=== PATIENT | male | born 1980 | race Caucasian/White ===

== ENCOUNTER 2016-07-19 15:32 | Emergency (ER) | payer OTHER ==
[2016-07-19 16:11] LABS: BASO % 0.6 % (0.0-1.0); EOS # 0.1 K/mm3 (0.0-0.50); EOS % 2.5 % (0.0-3.0); LARGE UNSTAINED CELL # 0.1 K/mm3 (0.0-0.4); LARGE UNSTAINED CELL % 1.6 % (0.0-4.0); LYMPH # 1.7 K/mm3 (1.5-4.5); LYMPH % 38.7 % (24.0-44.0); MEAN CORPUSCULAR HEMOGLOBIN 29.8 pg (27.0-33.0); MEAN CORPUSCULAR HGB CONC 34.7 g/dl (32.0-36.5); MEAN CORPUSCULAR VOLUME 85.8 fl (80.0-96.0); MONO # 0.3 K/mm3 (0.0-0.8); NEUTROPHILS # 2.1 K/mm3 (1.8-7.7); NEUTROPHILS % 50.6 % (36.0-66.0); PLATELET COUNT, AUTOMATED 208 k/mm3 (150-450); RED CELL DISTRIBUTION WIDTH 12.5 % (11.5-14.5); WHITE BLOOD COUNT 4.2 K/mm3 (4.0-10.0)
--- NOTE | 2016-07-19 16:15 | EDDOCDS ---
Nurse's Notes [facility] Name: Toro Reed Age: 36 yrs Sex: Male : 1980 Arrival Date: 07/19/2016 Time: 15:32 Bed I7 / 29 Private MD: Yeny Cruz DO Diagnosis: Contact with and (suspected) exposure to potentially hazardous body fluids;Puncture wound without foreign body of left index finger without damage to nail Presentation: 07/19 15:37 Presenting complaint: Patient states: left index finger needle stick after drawing a ttb patient in C4 at approx 1530 today. 20G. Cleansed with S&W x2 after injury occurred. No bleeding noted. Adult Sepsis Screening: The patient does not have new or worsening altered mentation. Patient's respiratory rate is less than 22. Systolic blood pressure is greater than 100. Patient has a qSOFA score of 0- Negative Sepsis Screen. Suicide/Homicide risk assessment- the patient denies having any suicidal and/or homicidal ideations and does not present with any other emotional, behavioral or mental health complaints. 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 Transition of care: patient was not received from another setting of care. 15:37 Acuity: NATALY Level 4 ttb 15:37 Method Of Arrival: Walkin/Carried/Asstd ttb Triage Assessment: 15:40 General: Appears in no apparent distress, well nourished, well groomed, Behavior is ttb appropriate for age, cooperative, pleasant. Pain: Denies pain. Pt Declines HIV testing. Neurological: Level of Consciousness is awake, alert. Cardiovascular: Chest pain is denied. Respiratory: No deficits noted. Airway is patent. Derm: Skin is normal, small puncture wound noted to left index finger. Injury Description: Puncture sustained to left index finger is superficial, was sustained less than 30 minutes ago. Historical: - Allergies: No known drug Allergies; - Home Meds: 1. levothyroxine 25 mcg Oral cap 1 cap once daily (Last dose: 07/19/2016 12:30) 2. vit D3 5000 daily (Last dose: 07/19/2016 12:30) - PMHx: Hypothyroidism; - PSHx: Carpal Tunnel Repair- Right; - Social history: Smoking status: Patient states was never smoker of tobacco. No barriers to communication noted, The patient speaks fluent Ethiopian, Speaks appropriately for age. - Family history: Not pertinent. - : The pt / caregiver states he / she is not on anticoagulants. Home medication list is obtained from the patient. - Exposure Risk Screening:: None identified. Screenin:35 No information. lr2 16:14 Screening information is obtained from the patient. Fall risk: No risks identified. dy Assistance ADL's: requires no assistance with activities of daily living. Abuse/DV Screen: The patient / caregiver reports he/she is: not in a situation that causes fear, pain or injury. Nutritional screening: No deficits noted. Advance Directives: There is no active DNR order. home support is adequate. Assessment: 16:01 General: Appears in no apparent distress, Behavior is appropriate for age, cooperative. rs3 Pain: Denies pain. Neurological: Level of Consciousness is awake, alert, Oriented to person, place, time. Respiratory: Airway is patent Respiratory effort is even, unlabored. Derm: Skin is pink, warm & dry. Vital Signs: 15:33 BP 120 / 70; Pulse 81; Resp 16; Temp 96.7(T); Pulse Ox 100% on R/A; Weight 78.47 kg lr2 (R); Height 5 ft. 7 in. (170.18 cm) (R); Pain 0/10; 15:33 Body Mass Index 27.10 (78.47 kg, 170.18 cm) lr2 Vitals: 15:33 Log In Time: July 19, 2016 at 15:32. lr2 ED Course: 15:33 Patient visited by Aniyah Cortes. lr2 15:33 Patient moved to Waiting lr2 15:34 Yeny Cruz is Private Physician. lr2 15:35 Patient moved to Pre RCE lr2 15:38 Triage Initiated ttb 15:42 Patient moved to I7 / ttb 15:47 [facility]. cc10 15:47 Nilson Child MD is Attending Physician. cc10 15:47 Patient visited by Jose Chaparro PA-C. cc10 15:47 Patient visited by Jose Chaparro PA-C. cc10 16:01 Hepatitis C Antibody Sent. rs3 16:01 Hepatitis B Surface Antigen Sent. rs3 16:01 Hepatitis B Surface Antibody Sent. rs3 16:01 HIV EXPOSED(ONLY WITH PEP SET) Sent. rs3 16:01 Complete Comphrensive Metabolic Sent. rs3 16:01 CBC with Diff Sent. rs3 16:08 Employee Health Office, . is Referral Physician. cc10 16:14 The patient / caregiver is instructed regarding the plan of care and ED course. Patient dy has correct armband on for positive identification. 16:14 No IV's were initiated during this patient's visit. No procedures done that require dy assistance. Order Results: Lab Order: CBC with Diff; SPEC'M 07/19/16 15:55 Test: WHITE BLOOD COUNT; Value: 4.2; Range: 4.0-10.0; Units: K/mm3; Status: F Test: RED BLOOD COUNT; Value: 4.81; Range: 4.30-6.10; Units: M/mm3; Status: F Test: HEMOGLOBIN; Value: 14.3; Range: 14.0-18.0; Units: g/dl; Status: F Test: HEMATOCRIT; Value: 41.3; Range: 42.0-52.0; Abnormal: Below low normal; Units: %; Status: F Test: MEAN CORPUSCULAR VOLUME; Value: 85.8; Range: 80.0-96.0; Units: fl; Status: F Test: MEAN CORPUSCULAR HEMOGLOBIN; Value: 29.8; Range: 27.0-33.0; Units: pg; Status: F Test: MEAN CORPUSCULAR HGB CONC; Value: 34.7; Range: 32.0-36.5; Units: g/dl; Status: F Test: RED CELL DISTRIBUTION WIDTH; Value: 12.5; Range: 11.5-14.5; Units: %; Status: F Test: PLATELET COUNT, AUTOMATED; Value: 208; Range: 150-450; Units: k/mm3; Status: F Test: NEUTROPHILS %; Value: 50.6; Range: 36.0-66.0; Units: %; Status: F Test: LYMPH %; Value: 38.7; Range: 24.0-44.0; Units: %; Status: F Test: MONO %; Value: 6.0; Range: 0.0-5.0; Abnormal: Above high normal; Units: %; Status: F Test: EOS %; Value: 2.5; Range: 0.0-3.0; Units: %; Status: F Test: BASO %; Value: 0.6; Range: 0.0-1.0; Units: %; Status: F Test: LARGE UNSTAINED CELL %; Value: 1.6; Range: 0.0-4.0; Units: %; Status: F Test: NEUTROPHILS #; Value: 2.1; Range: 1.8-7.7; Units: K/mm3; Status: F Test: LYMPH #; Value: 1.7; Range: 1.5-4.5; Units: K/mm3; Status: F Test: MONO #; Value: 0.3; Range: 0.0-0.8; Units: K/mm3; Status: F Test: EOS #; Value: 0.1; Range: 0.0-0.50; Units: K/mm3; Status: F Test: BASO #; Value: 0.0; Range: 0.0-0.2; Units: K/mm3; Status: F Test: LARGE UNSTAINED CELL #; Value: 0.1; Range: 0.0-0.4; Units: K/mm3; Status: F Outcome: 16:08 Discharge ordered by Provider. cc10 16:14 Discharge Assessment: patient administered narcotics - no. The following High Risk dy Discharge criteria are identified: None. Discharged to home ambulatory. Condition: good. Discharge instructions given to patient, Instructed on discharge instructions, follow up and referral plans. Demonstrated understanding of instructions, Pt was receptive of discharge instructions/ teaching. No special radiology studies were completed. Property sent home with patient. 16:15 Patient left the ED. dy Signatures: Surya Sue RN Vida Farooq RN RN rs3 Kerry Perales RN RN Jose García PA-C PAAbhay cc10 Aniyah Cortes2 MTDD
--- NOTE | 2016-07-19 16:15 | EDDOCDS ---
Physician Documentation [facility] Name: Toro Reed Age: 36 yrs Sex: Male : 1980 Arrival Date: 07/19/2016 Time: 15:32 Bed I7 / 29 Private MD: Yeny Cruz DO Disposition: 07/19/16 16:08 Discharged to Home/Self Care. Impression: Contact with and (suspected) exposure to potentially hazardous body fluids, Puncture wound without foreign body of left index finger without damage to nail. - Condition is Stable. - Discharge Instructions: Body Fluid Exposure Information. - Medication Reconciliation form. - Follow up: Employee Health Office, .; When: Call to arrange an appointment; Reason: Recheck today's complaints, Continuance of care. - Problem is new. - Symptoms are unchanged. Historical: - Allergies: No known drug Allergies; - Home Meds: 1. levothyroxine 25 mcg Oral cap 1 cap once daily (Last dose: 07/19/2016 12:30) 2. vit D3 5000 daily (Last dose: 07/19/2016 12:30) - PMHx: Hypothyroidism; - PSHx: Carpal Tunnel Repair- Right; - Social history: Smoking status: Patient states was never smoker of tobacco. No barriers to communication noted, The patient speaks fluent Slovak, Speaks appropriately for age. - Family history: Not pertinent. - : The pt / caregiver states he / she is not on anticoagulants. Home medication list is obtained from the patient. - Exposure Risk Screening:: None identified. Vital Signs: 07/19 15:33 BP 120 / 70; Pulse 81; Resp 16; Temp 96.7(T); Pulse Ox 100% on R/A; Weight 78.47 kg / lr2 173 lbs (R); Height 5 ft. 7 in. (170.18 cm) (R); Pain 0/10; 15:33 Body Mass Index 27.10 (78.47 kg, 170.18 cm) lr2 MDM: 15:53 CBC with Diff Ordered. EDMS 15:53 Complete Comphrensive Metabolic Ordered. EDMS 15:53 HIV EXPOSED(ONLY WITH PEP SET) Ordered. EDMS 15:53 Hepatitis B Surface Antibody Ordered. EDMS 15:53 Hepatitis B Surface Antigen Ordered. EDMS 15:53 Hepatitis C Antibody Ordered. EDMS Signatures: Dispatcher Med[employer] EDMS Surya Sue, RN RN Kerry Simeon RN RN Jose García, LANDON NAVARRETE cc10 MTDD
[2016-07-19 16:26] LABS: ALBUMIN 3.9 GM/DL (3.2-5.2); ALBUMIN/GLOBULIN RATIO 1.34 (1.00-1.93); ALKALINE PHOSPHATASE 73 U/L (45-117); ALT/SGPT 16 U/L (12-78); ANION GAP 7 MEQ/L (8-16); AST/SGOT 13 U/L (15-37); BILIRUBIN,TOTAL 0.3 MG/DL (0.2-1.0); BLOOD UREA NITROGEN 16 MG/DL (7-18); CALCIUM LEVEL 8.5 MG/DL (8.5-10.1); CARBON DIOXIDE LEVEL 28 MEQ/L (21-32); CHLORIDE LEVEL 109 MEQ/L (98-107); CREATININE FOR GFR 0.89 MG/DL (0.70-1.30); GLOMERULAR FILTRATION RATE > 60.0 (>60); GLUCOSE, FASTING 93 MG/DL (70-105); POTASSIUM SERUM 4.1 MEQ/L (3.5-5.1); SODIUM LEVEL 144 MEQ/L (136-145); TOTAL PROTEIN 6.8 GM/DL (6.4-8.2)
[2016-07-19 17:15] LABS: CONTROL LINE INT CTR LINE PRESENT
[2016-07-20 10:52] LABS: HEPATITIS B SURFACE ANTIBODY POSITIVE (POSITIVE)
--- NOTE | 2016-07-21 17:16 | EDDOCDS ---
Nurse's Notes [facility] Name: Toro Reed Age: 36 yrs Sex: Male : 1980 Arrival Date: 07/19/2016 Time: 15:32 Bed I7 / 29 Private MD: Yeny Cruz DO Diagnosis: Contact with and (suspected) exposure to potentially hazardous body fluids;Puncture wound without foreign body of left index finger without damage to nail Presentation: 07/19 15:37 Presenting complaint: Patient states: left index finger needle stick after drawing a ttb patient in C4 at approx 1530 today. 20G. Cleansed with S&W x2 after injury occurred. No bleeding noted. Adult Sepsis Screening: The patient does not have new or worsening altered mentation. Patient's respiratory rate is less than 22. Systolic blood pressure is greater than 100. Patient has a qSOFA score of 0- Negative Sepsis Screen. Suicide/Homicide risk assessment- the patient denies having any suicidal and/or homicidal ideations and does not present with any other emotional, behavioral or mental health complaints. Status: The patient is an active duty service delivery management consultant. Transition of care: patient was not received from another setting of care. 15:37 Acuity: NATALY Level 4 ttb 15:37 Method Of Arrival: Walkin/Carried/Asstd ttb Triage Assessment: 15:40 General: Appears in no apparent distress, well nourished, well groomed, Behavior is ttb appropriate for age, cooperative, pleasant. Pain: Denies pain. Pt Declines HIV testing. Neurological: Level of Consciousness is awake, alert. Cardiovascular: Chest pain is denied. Respiratory: No deficits noted. Airway is patent. Derm: Skin is normal, small puncture wound noted to left index finger. Injury Description: Puncture sustained to left index finger is superficial, was sustained less than 30 minutes ago. Historical: - Allergies: No known drug Allergies; - Home Meds: 1. levothyroxine 25 mcg Oral cap 1 cap once daily (Last dose: 07/19/2016 12:30) 2. vit D3 5000 daily (Last dose: 07/19/2016 12:30) - PMHx: Hypothyroidism; - PSHx: Carpal Tunnel Repair- Right; - Social history: Smoking status: Patient states was never smoker of tobacco. No barriers to communication noted, The patient speaks fluent Japanese, Speaks appropriately for age. - Family history: Not pertinent. - : The pt / caregiver states he / she is not on anticoagulants. Home medication list is obtained from the patient. - Exposure Risk Screening:: None identified. Screenin:35 No information. lr2 16:14 Screening information is obtained from the patient. Fall risk: No risks identified. dy Assistance ADL's: requires no assistance with activities of daily living. Abuse/DV Screen: The patient / caregiver reports he/she is: not in a situation that causes fear, pain or injury. Nutritional screening: No deficits noted. Advance Directives: There is no active DNR order. home support is adequate. Assessment: 16:01 General: Appears in no apparent distress, Behavior is appropriate for age, cooperative. rs3 Pain: Denies pain. Neurological: Level of Consciousness is awake, alert, Oriented to person, place, time. Respiratory: Airway is patent Respiratory effort is even, unlabored. Derm: Skin is pink, warm & dry. Vital Signs: 15:33 BP 120 / 70; Pulse 81; Resp 16; Temp 96.7(T); Pulse Ox 100% on R/A; Weight 78.47 kg lr2 (R); Height 5 ft. 7 in. (170.18 cm) (R); Pain 0/10; 15:33 Body Mass Index 27.10 (78.47 kg, 170.18 cm) lr2 Vitals: 15:33 Log In Time: July 19, 2016 at 15:32. lr2 ED Course: 15:33 Patient visited by Aniyah Cortes. lr2 15:33 Patient moved to Waiting lr2 15:34 Yeny Cruz is Private Physician. lr2 15:35 Patient moved to Pre RCE lr2 15:38 Triage Initiated ttb 15:42 Patient moved to I7 / ttb 15:47 [facility]. cc[facility] 15:47 Nilson Child MD is Attending Physician. cc10 15:47 Patient visited by Jose Chaparro PA-C. cc10 15:47 Patient visited by Jose Chaparro PA-C. cc10 16:01 Hepatitis C Antibody Sent. rs3 16:01 Hepatitis B Surface Antigen Sent. rs3 16:01 Hepatitis B Surface Antibody Sent. rs3 16:01 HIV EXPOSED(ONLY WITH PEP SET) Sent. rs3 16:01 Complete Comphrensive Metabolic Sent. rs3 16:01 CBC with Diff Sent. rs3 16:08 Employee Health Office, . is Referral Physician. cc10 16:14 The patient / caregiver is instructed regarding the plan of care and ED course. Patient dy has correct armband on for positive identification. 16:14 No IV's were initiated during this patient's visit. No procedures done that require dy assistance. 16:24 [facility] Payment Agreement was scanned into [employer] and attached to record. jp5 22:02 Patient name changed from Toro\S\\S\Reed\S\ to Toro\S\M\S\Reed. EDMS 07/20 09:23 T-Sheet-- Draft Copy was scanned into [employer] and attached to record. gb 13:58 Other: PEP was scanned into [employer] and attached to record. gb Order Results: Lab Order: CBC with Diff; SPEC'M 07/19/16 15:55 Test: WHITE BLOOD COUNT; Value: 4.2; Range: 4.0-10.0; Units: K/mm3; Status: F Test: RED BLOOD COUNT; Value: 4.81; Range: 4.30-6.10; Units: M/mm3; Status: F Test: HEMOGLOBIN; Value: 14.3; Range: 14.0-18.0; Units: g/dl; Status: F Test: HEMATOCRIT; Value: 41.3; Range: 42.0-52.0; Abnormal: Below low normal; Units: %; Status: F Test: MEAN CORPUSCULAR VOLUME; Value: 85.8; Range: 80.0-96.0; Units: fl; Status: F Test: MEAN CORPUSCULAR HEMOGLOBIN; Value: 29.8; Range: 27.0-33.0; Units: pg; Status: F Test: MEAN CORPUSCULAR HGB CONC; Value: 34.7; Range: 32.0-36.5; Units: g/dl; Status: F Test: RED CELL DISTRIBUTION WIDTH; Value: 12.5; Range: 11.5-14.5; Units: %; Status: F Test: PLATELET COUNT, AUTOMATED; Value: 208; Range: 150-450; Units: k/mm3; Status: F Test: NEUTROPHILS %; Value: 50.6; Range: 36.0-66.0; Units: %; Status: F Test: LYMPH %; Value: 38.7; Range: 24.0-44.0; Units: %; Status: F Test: MONO %; Value: 6.0; Range: 0.0-5.0; Abnormal: Above high normal; Units: %; Status: F Test: EOS %; Value: 2.5; Range: 0.0-3.0; Units: %; Status: F Test: BASO %; Value: 0.6; Range: 0.0-1.0; Units: %; Status: F Test: LARGE UNSTAINED CELL %; Value: 1.6; Range: 0.0-4.0; Units: %; Status: F Test: NEUTROPHILS #; Value: 2.1; Range: 1.8-7.7; Units: K/mm3; Status: F Test: LYMPH #; Value: 1.7; Range: 1.5-4.5; Units: K/mm3; Status: F Test: MONO #; Value: 0.3; Range: 0.0-0.8; Units: K/mm3; Status: F Test: EOS #; Value: 0.1; Range: 0.0-0.50; Units: K/mm3; Status: F Test: BASO #; Value: 0.0; Range: 0.0-0.2; Units: K/mm3; Status: F Test: LARGE UNSTAINED CELL #; Value: 0.1; Range: 0.0-0.4; Units: K/mm3; Status: F Lab Order: Complete Comphrensive Metabolic; SPEC'M 07/19/16 15:55 Test: GLUCOSE, FASTING; Value: 93; Range: 70-105; Units: MG/DL; Status: F Test: BLOOD UREA NITROGEN; Value: 16; Range: 7-18; Units: MG/DL; Status: F Test: CREATININE FOR GFR; Value: 0.89; Range: 0.70-1.30; Units: MG/DL; Status: F Test: GLOMERULAR FILTRATION RATE; Value: > 60.0; Range: >60; Status: F Test: SODIUM LEVEL; Value: 144; Range: 136-145; Units: MEQ/L; Status: F Test: POTASSIUM SERUM; Value: 4.1; Range: 3.5-5.1; Units: MEQ/L; Status: F Test: CHLORIDE LEVEL; Value: 109; Range: 98-107; Abnormal: Above high normal; Units: MEQ/L; Status: F Test: CARBON DIOXIDE LEVEL; Value: 28; Range: 21-32; Units: MEQ/L; Status: F Test: ANION GAP; Value: 7; Range: 8-16; Abnormal: Below low normal; Units: MEQ/L; Status: F Test: CALCIUM LEVEL; Value: 8.5; Range: 8.5-10.1; Units: MG/DL; Status: F Test: AST/SGOT; Value: 13; Range: 15-37; Abnormal: Below low normal; Units: U/L; Status: F Test: ALT/SGPT; Value: 16; Range: 12-78; Units: U/L; Status: F Test: ALKALINE PHOSPHATASE; Value: 73; Range: 45-117; Units: U/L; Status: F Test: BILIRUBIN,TOTAL; Value: 0.3; Range: 0.2-1.0; Units: MG/DL; Status: F Test: TOTAL PROTEIN; Value: 6.8; Range: 6.4-8.2; Units: GM/DL; Status: F Test: ALBUMIN; Value: 3.9; Range: 3.2-5.2; Units: GM/DL; Status: F Test: ALBUMIN/GLOBULIN RATIO; Value: 1.34; Range: 1.00-1.93; Status: F Test Note: ; Units are mL/min/1.73 m2 Chronic Kidney Disease Staging per NKF: Stage I & II GFR >=60 Normal to Mildly Decreased Stage III GFR 30-59 Moderately Decreased Stage IV GFR 15-29 Severely Decreased Stage V GFR <15 Very Little GFR Left ESRD GFR <15 on SAS ARCHITECT Lab Order: HIV EXPOSED(ONLY WITH PEP SET); SPEC'M 07/19/16 15:55 Test: HIVEXPOSED0; Value: NEGATIVE; Range: NEGATIVE; Status: F Test: HIV EXPOSED PT 1; Value: NEGATIVE; Range: NEGATIVE; Status: F Test Note: ; This test was performed utilizing a immunochromatographic sandwich principle technique. Sensitivity of the assay is 100%. Specificity of the assay is 99.7%. This test was performed utilizing a immunochromatographic sandwich principle technique. Sensitivity of the assay is 100%. Specificity of the assay is 99.7%. Lab Order: Hepatitis B Surface Antibody; SPEC'M 07/19/16 15:55 Test: HEPATITIS B SURFACE ANTIBODY; Value: POSITIVE; Range: POSITIVE; Status: F Lab Order: Hepatitis B Surface Antigen; SPEC'M 07/19/16 15:55 Test: HEPATITIS B SURFACE ANTIGEN; Value: NEGATIVE; Range: NEGATIVE; Status: F Lab Order: HEPATITIS C ANTIBODY; SPEC'M 07/19/16 15:55 Test: HEPATITIS C VIRUS RAHUL INDEX; Value: 0.1; Range: <0.8; Units: INDEX; Status: F Test Note: ; Negative Not infected with HCV, unless recent infection is suspected or other evidence exists to indicate HCV infection. Outcome: 07/19 16:08 Discharge ordered by Provider. cc10 16:14 Discharge Assessment: patient administered narcotics - no. The following High Risk dy Discharge criteria are identified: None. Discharged to home ambulatory. Condition: good. Discharge instructions given to patient, Instructed on discharge instructions, follow up and referral plans. Demonstrated understanding of instructions, Pt was receptive of discharge instructions/ teaching. No special radiology studies were completed. Property sent home with patient. 16:15 Patient left the ED. dy Signatures: Dispatcher [employer] EDMS Rocio Meyer, Primo Reg Surya Jacob RN RN dy Soosairaj, Rosemary, RN RN rs3 Kerry Perales RN RN ttb Coniski, Colin, PA-Teto PA-C cc10 Luis Alberto Preciado jp5 Aniyah Cortes Chart Complete MTDD
--- NOTE | 2016-07-21 17:16 | EDDOCDS ---
Physician Documentation [facility] Name: Toro Reed Age: 36 yrs Sex: Male : 1980 Arrival Date: 07/19/2016 Time: 15:32 Bed I7 / 29 Private MD: Yeny Cruz DO Disposition: 07/19/16 16:08 Discharged to Home/Self Care. Impression: Contact with and (suspected) exposure to potentially hazardous body fluids, Puncture wound without foreign body of left index finger without damage to nail. - Condition is Stable. - Discharge Instructions: Body Fluid Exposure Information. - Medication Reconciliation form. - Follow up: Employee Health Office, .; When: Call to arrange an appointment; Reason: Recheck today's complaints, Continuance of care. - Problem is new. - Symptoms are unchanged. Historical: - Allergies: No known drug Allergies; - Home Meds: 1. levothyroxine 25 mcg Oral cap 1 cap once daily (Last dose: 07/19/2016 12:30) 2. vit D3 5000 daily (Last dose: 07/19/2016 12:30) - PMHx: Hypothyroidism; - PSHx: Carpal Tunnel Repair- Right; - Social history: Smoking status: Patient states was never smoker of tobacco. No barriers to communication noted, The patient speaks fluent Andorran, Speaks appropriately for age. - Family history: Not pertinent. - : The pt / caregiver states he / she is not on anticoagulants. Home medication list is obtained from the patient. - Exposure Risk Screening:: None identified. Vital Signs: 07/19 15:33 BP 120 / 70; Pulse 81; Resp 16; Temp 96.7(T); Pulse Ox 100% on R/A; Weight 78.47 kg / lr2 173 lbs (R); Height 5 ft. 7 in. (170.18 cm) (R); Pain 0/10; 15:33 Body Mass Index 27.10 (78.47 kg, 170.18 cm) lr2 MDM: 15:53 CBC with Diff Ordered. EDMS 15:53 Complete Comphrensive Metabolic Ordered. EDMS 15:53 HIV EXPOSED(ONLY WITH PEP SET) Ordered. EDMS 15:53 Hepatitis B Surface Antibody Ordered. EDMS 15:53 Hepatitis B Surface Antigen Ordered. EDMS 15:53 Hepatitis C Antibody Ordered. EDMS 16:21 HEPATITIS C ANTIBODY Ordered. EDMS 16:24 [place] Payment Agreement was scanned into [employer] and attached to record. jp5 16:24 Financial registration complete. jp5 07/20 09:23 T-Sheet-- Draft Copy was scanned into [employer] and attached to record. gb 13:58 Other: PEP was scanned into [employer] and attached to record. gb Signatures: Dispatcher [employer] EDMS Rocio Meyer, Reg Reg gb Surya Sue, RN RN Kerry Simeon RN RN ttb Jose Chaparro, PA-C PA-C cc10 Luis Alberto Preciado jp5 The chart was reviewed and I authenticate all verbal orders and agree with the evaluation and treatment provided.Attachments: 07/19 16:24 [facility] Payment Agreement jp5 07/20 09:23 T-Sheet-- Draft Copy gb Chart Complete MTDD
--- NOTE | 2016-07-21 17:16 | EDDOCDS ---
Physician Documentation [facility] Name: Toro Reed Age: 36 yrs Sex: Male : 1980 Arrival Date: 07/19/2016 Time: 15:32 Bed I7 / 29 Private MD: Yeny Cruz DO Disposition: 07/19/16 16:08 Discharged to Home/Self Care. Impression: Contact with and (suspected) exposure to potentially hazardous body fluids, Puncture wound without foreign body of left index finger without damage to nail. - Condition is Stable. - Discharge Instructions: Body Fluid Exposure Information. - Medication Reconciliation form. - Follow up: Employee Health Office, .; When: Call to arrange an appointment; Reason: Recheck today's complaints, Continuance of care. - Problem is new. - Symptoms are unchanged. Historical: - Allergies: No known drug Allergies; - Home Meds: 1. levothyroxine 25 mcg Oral cap 1 cap once daily (Last dose: 07/19/2016 12:30) 2. vit D3 5000 daily (Last dose: 07/19/2016 12:30) - PMHx: Hypothyroidism; - PSHx: Carpal Tunnel Repair- Right; - Social history: Smoking status: Patient states was never smoker of tobacco. No barriers to communication noted, The patient speaks fluent Eritrean, Speaks appropriately for age. - Family history: Not pertinent. - : The pt / caregiver states he / she is not on anticoagulants. Home medication list is obtained from the patient. - Exposure Risk Screening:: None identified. Vital Signs: 07/19 15:33 BP 120 / 70; Pulse 81; Resp 16; Temp 96.7(T); Pulse Ox 100% on R/A; Weight 78.47 kg / lr2 173 lbs (R); Height 5 ft. 7 in. (170.18 cm) (R); Pain 0/10; 15:33 Body Mass Index 27.10 (78.47 kg, 170.18 cm) lr2 MDM: 15:53 CBC with Diff Ordered. EDMS 15:53 Complete Comphrensive Metabolic Ordered. EDMS 15:53 HIV EXPOSED(ONLY WITH PEP SET) Ordered. EDMS 15:53 Hepatitis B Surface Antibody Ordered. EDMS 15:53 Hepatitis B Surface Antigen Ordered. EDMS 15:53 Hepatitis C Antibody Ordered. EDMS 16:21 HEPATITIS C ANTIBODY Ordered. EDMS 16:24 [facility] Agreement was scanned into [employer] and attached to record. jp5 16:24 Financial registration complete. jp5 07/20 09:23 T-Sheet-- Draft Copy was scanned into [employer] and attached to record. gb 13:58 Other: PEP was scanned into [employer] and attached to record. gb Signatures: Dispatcher [employer] EDMS Rocio Meyer, Reg Reg gb Surya Sue, RN RN Kerry Simeon RN RN ttb Jose Chaparro, PA-C PA-C cc10 Luis Alberto Preciado jp5 The chart was reviewed and I authenticate all verbal orders and agree with the evaluation and treatment provided.Attachments: 07/19 16:24 REPLACED BY [facility] Payment Agreement jp5 07/20 09:23 T-Sheet-- Draft Copy gb Chart Complete MTDD
== END 2016-07-19 16:15 | disposition home or self-care (01) ==
LOC: MERGE 15:32 → M ED 15:32
DX: Z77.21 Contact with and (suspected) exposure to potentially hazardous body fluids (principal); S61.231A Puncture wound without foreign body of left index finger without damage to nail, initial encounter; W46.0XXA Contact with hypodermic needle, initial encounter; Y92.230 Patient room in hospital as the place of occurrence of the external cause; Y93.89 Activity, other specified; Y99.0 Civilian activity done for income or pay; E03.9 Hypothyroidism, unspecified; Z79.899 Other long term (current) drug therapy

== ENCOUNTER → 2016-12-31 | Outpatient (CLI) | payer OTHER ==
[2016-12-31 09:38] LABS: BASO % 0.6 % (0.0-1.0); EOS # 0.1 K/mm3 (0.0-0.50); EOS % 2.1 % (0.0-3.0); LARGE UNSTAINED CELL # 0.1 K/mm3 (0.0-0.4); LARGE UNSTAINED CELL % 2.9 % (0.0-4.0); LYMPH # 1.7 K/mm3 (1.5-4.5); LYMPH % 40.8 % (24.0-44.0); MEAN CORPUSCULAR HEMOGLOBIN 30.1 pg (27.0-33.0); MEAN CORPUSCULAR HGB CONC 34.1 g/dl (32.0-36.5); MEAN CORPUSCULAR VOLUME 88.3 fl (80.0-96.0); MONO # 0.3 K/mm3 (0.0-0.8); MONO % 6.4 % (0.0-5.0); NEUTROPHILS % 47.2 % (36.0-66.0); PLATELET COUNT, AUTOMATED 185 k/mm3 (150-450); RED CELL DISTRIBUTION WIDTH 12.6 % (11.5-14.5); WHITE BLOOD COUNT 4.2 K/mm3 (4.0-10.0)
[2016-12-31 10:20] LABS: SICKLE CELL SCREEN NEGATIVE (NEGATIVE)
[2016-12-31 10:24] LABS: ALBUMIN 3.9 GM/DL (3.2-5.2); ALBUMIN/GLOBULIN RATIO 1.26 (1.00-1.93); ALKALINE PHOSPHATASE 66 U/L (45-117); ALT/SGPT 32 U/L (12-78); ANION GAP 6 MEQ/L (8-16); AST/SGOT 16 U/L (15-37); BILIRUBIN,TOTAL 0.3 MG/DL (0.2-1.0); BLOOD UREA NITROGEN 9 MG/DL (7-18); CARBON DIOXIDE LEVEL 29 MEQ/L (21-32); CHLORIDE LEVEL 109 MEQ/L (98-107); CHOLESTEROL LEVEL 164 MG/DL (<200); CREATININE FOR GFR 0.84 MG/DL (0.70-1.30); FREE T4 1.09 NG/DL (0.76-1.46); GLOMERULAR FILTRATION RATE > 60.0 (>60); GLUCOSE, FASTING 94 MG/DL (70-105); POTASSIUM SERUM 4.5 MEQ/L (3.5-5.1); SODIUM LEVEL 144 MEQ/L (136-145); TRIGLYCERIDES LEVEL 64 MG/DL (<150)
== END ==
LOC: M LAB 08:35
PROVIDERS: ATTEND Physician Assistant Medical
DX: E03.9 Hypothyroidism, unspecified (principal); Z13.0 Encounter for screening for diseases of the blood and blood-forming organs and certain disorders involving the immune mechanism; Z13.220 Encounter for screening for lipoid disorders; Z23 Encounter for immunization

== ENCOUNTER → 2017-01-27 | Outpatient (CLI) | payer OTHER ==
[2017-01-27 10:44] LABS: FREE T4 1.33 NG/DL (0.76-1.46)
== END ==
LOC: M LAB 09:00
PROVIDERS: ATTEND Family Medicine
DX: E03.9 Hypothyroidism, unspecified (principal)

== ENCOUNTER → 2018-01-11 | Outpatient (CLI) | payer OTHER, BC ==
[2018-01-11 13:04] LABS: BASO % 0.4 % (0.0-1.0); EOS # 0.1 10^3/uL (0.0-0.50); EOS % 1.7 % (0.0-3.0); HEMATOCRIT 45.3 % (42.0-52.0); HEMOGLOBIN 15.4 g/dl (13.5-17.5); IMMATURE GRANULOCYTE % 0.2 % (0-3.0); LYMPH # 1.7 10^3/uL (1.5-4.5); LYMPH % 31.6 % (24.0-44.0); MEAN CORPUSCULAR HEMOGLOBIN 29.3 pg (27.0-33.0); MEAN CORPUSCULAR VOLUME 86.1 fl (80.0-96.0); MONO # 0.5 10^3/uL (0.0-0.8); MONO % 9.6 % (0.0-5.0); NEUTROPHILS % 56.5 % (36.0-66.0); PLATELET COUNT, AUTOMATED 124 10^3/uL (150-450); RED BLOOD COUNT 5.26 10^6/uL (4.30-6.10); RED CELL DISTRIBUTION WIDTH 12.8 % (11.5-14.5); WHITE BLOOD COUNT 5.3 10^3/uL (4.0-10.0)
[2018-01-11 13:33] LABS: ALBUMIN 3.9 GM/DL (3.2-5.2); ALBUMIN/GLOBULIN RATIO 1.18 (1.00-1.93); ALKALINE PHOSPHATASE 71 U/L (45-117); ALT/SGPT 28 U/L (12-78); ANION GAP 7 MEQ/L (8-16); AST/SGOT 13 U/L (7-37); BILIRUBIN,TOTAL 0.5 MG/DL (0.2-1.0); BLOOD UREA NITROGEN 13 MG/DL (7-18); CALCIUM LEVEL 9.1 MG/DL (8.5-10.1); CARBON DIOXIDE LEVEL 28 MEQ/L (21-32); CHLORIDE LEVEL 108 MEQ/L (98-107); CHOLESTEROL LEVEL 167 MG/DL (<200); CHOLESTEROL RISK RATIO 4.282 (<5); CREATININE FOR GFR 0.88 MG/DL (0.70-1.30); GLOMERULAR FILTRATION RATE > 60.0 (>60); GLUCOSE, FASTING 90 MG/DL (70-100); HDL CHOLESTEROL 39 MG/DL (>40); LDL CHOLESTEROL 112.2 MG/DL (<100); NON-HDL-C 128 MG/DL; POTASSIUM SERUM 4.9 MEQ/L (3.5-5.1); SODIUM LEVEL 143 MEQ/L (136-145); THYROID STIMULATING HORMONE 0.682 uIU/ML (0.358-3.740); TOTAL PROTEIN 7.2 GM/DL (6.4-8.2); TRIGLYCERIDES LEVEL 79 MG/DL (<150)
== END ==
LOC: M SMT 08:27
DX: E03.9 Hypothyroidism, unspecified (principal); E55.9 Vitamin D deficiency, unspecified; Z13.29 Encounter for screening for other suspected endocrine disorder; Z13.220 Encounter for screening for lipoid disorders; Z13.0 Encounter for screening for diseases of the blood and blood-forming organs and certain disorders involving the immune mechanism
CPT/HCPCS: 84443

== ENCOUNTER → 2018-02-10 | Outpatient (CLI) | payer BC, OTHER ==
[2018-02-10 19:21] LABS: BASO % 0.6 % (0.0-1.0); EOS # 0.1 10^3/uL (0.0-0.50); HEMATOCRIT 44.9 % (42.0-52.0); HEMOGLOBIN 15.2 g/dl (13.5-17.5); IMMATURE GRANULOCYTE % 0.2 % (0-3.0); LYMPH # 2.3 10^3/uL (1.5-4.5); LYMPH % 36.4 % (24.0-44.0); MEAN CORPUSCULAR HGB CONC 33.9 g/dl (32.0-36.5); MEAN CORPUSCULAR VOLUME 85.7 fl (80.0-96.0); MONO # 0.5 10^3/uL (0.0-0.8); MONO % 7.3 % (0.0-5.0); NEUTROPHILS # 3.4 10^3/uL (1.8-7.7); NEUTROPHILS % 54.5 % (36.0-66.0); PLATELET COUNT, AUTOMATED 148 10^3/uL (150-450); RED BLOOD COUNT 5.24 10^6/uL (4.30-6.10); RED CELL DISTRIBUTION WIDTH 12.4 % (11.5-14.5); WHITE BLOOD COUNT 6.3 10^3/uL (4.0-10.0)
[2018-02-10 19:36] LABS: REASON FOR REVIEW OTHER; SLIDE REVIEW Report; SOURCE PERIPHERAL SMEAR
== END ==
LOC: M SMT 15:01
DX: D69.6 Thrombocytopenia, unspecified (principal)
CPT/HCPCS: 85025

== ENCOUNTER → 2019-02-17 | Outpatient (CLI) | payer BC, OTHER ==
[2019-02-17 15:38] LABS: BASO % 0.6 % (0.0-1.0); EOS # 0.1 10^3/uL (0.0-0.5); EOS % 1.7 % (0.0-3.0); HEMATOCRIT 47.8 % (42.0-52.0); LYMPH % 42.5 % (24.0-44.0); MEAN CORPUSCULAR HEMOGLOBIN 29.5 pg (27.0-33.0); MEAN CORPUSCULAR HGB CONC 33.5 g/dl (32.0-36.5); MEAN CORPUSCULAR VOLUME 88.2 fl (80.0-96.0); MONO # 0.5 10^3/uL (0.0-0.8); MONO % 9.7 % (0.0-5.0); NEUTROPHILS # 2.1 10^3/uL (1.5-8.5); NEUTROPHILS % 45.3 % (36.0-66.0); PLATELET COUNT, AUTOMATED 183 10^3/uL (150-450); RED BLOOD COUNT 5.42 10^6/uL (4.30-6.10); WHITE BLOOD COUNT 4.7 10^3/uL (4.0-10.0)
[2019-02-17 17:01] LABS: ALT/SGPT 59 U/L (12-78); BILIRUBIN,TOTAL 0.4 MG/DL (0.2-1.0); BLOOD UREA NITROGEN 13 MG/DL (7-18); CALCIUM LEVEL 9.2 MG/DL (8.5-10.1); CARBON DIOXIDE LEVEL 28 MEQ/L (21-32); CHLORIDE LEVEL 109 MEQ/L (98-107); CHOLESTEROL LEVEL 168 MG/DL (<200); CHOLESTEROL RISK RATIO 3.733 (<5); CREATININE FOR GFR 1.03 MG/DL (0.70-1.30); FREE T4 1.24 NG/DL (0.76-1.46); GLOMERULAR FILTRATION RATE > 60.0 (>60); GLUCOSE, FASTING 97 MG/DL (70-100); HDL CHOLESTEROL 45 MG/DL (>40); LDL CHOLESTEROL 107 MG/DL (<100); NON-HDL-C 123 MG/DL; POTASSIUM SERUM 4.9 MEQ/L (3.5-5.1); SODIUM LEVEL 143 MEQ/L (136-145); TOTAL 25(OH) VITAMIN D 33.3 NG/ML (30.0-100.0); TOTAL PROTEIN 7.2 GM/DL (6.4-8.2); TRIGLYCERIDES LEVEL 80 MG/DL (<150)
== END ==
LOC: M SMT 08:35
PROVIDERS: ATTEND Family Medicine
DX: Z00.00 Encounter for general adult medical examination without abnormal findings (principal); E55.9 Vitamin D deficiency, unspecified; E03.9 Hypothyroidism, unspecified; Z13.29 Encounter for screening for other suspected endocrine disorder; Z13.0 Encounter for screening for diseases of the blood and blood-forming organs and certain disorders involving the immune mechanism; Z13.220 Encounter for screening for lipoid disorders

== ENCOUNTER → 2019-03-22 | Outpatient (REF) | payer OTHER, BC ==
[2019-03-22 23:51] LABS: CHLAMYDIA DNA AMPLIFICATION NEGATIVE (NEGATIVE); GC DNA AMPLIFICATION NEGATIVE (NEGATIVE)
== END ==
LOC: M LAB REF 17:05
PROVIDERS: ATTEND Family Medicine
DX: N50.812 Left testicular pain (principal)

== ENCOUNTER → 2019-11-09 | Outpatient (CLI) | payer BC, OTHER ==
[2019-11-09 15:36] LABS: BASO % 0.4 % (0.0-1.0); EOS # 0.1 10^3/uL (0.0-0.5); EOS % 0.7 % (0.0-3.0); HEMATOCRIT 43.8 % (42.0-52.0); HEMOGLOBIN 15.1 g/dl (13.5-17.5); LYMPH # 2.3 10^3/uL (1.5-5.0); LYMPH % 33.9 % (24.0-44.0); MEAN CORPUSCULAR HGB CONC 34.5 g/dl (32.0-36.5); MEAN CORPUSCULAR VOLUME 84.1 fl (80.0-96.0); MONO # 0.6 10^3/uL (0.0-0.8); MONO % 8.4 % (0.0-5.0); NEUTROPHILS # 3.8 10^3/uL (1.5-8.5); NEUTROPHILS % 56.5 % (36.0-66.0); PLATELET COUNT, AUTOMATED 250 10^3/uL (150-450); RED BLOOD COUNT 5.21 10^6/uL (4.30-6.10); WHITE BLOOD COUNT 6.7 10^3/uL (4.0-10.0)
[2019-11-09 16:10] LABS: ALBUMIN 4.1 GM/DL (3.2-5.2); ALT/SGPT 118 U/L (12-78); BILIRUBIN,TOTAL 0.5 MG/DL (0.2-1.0); BLOOD UREA NITROGEN 13 MG/DL (7-18); CARBON DIOXIDE LEVEL 28 MEQ/L (21-32); CHLORIDE LEVEL 108 MEQ/L (98-107); CHOLESTEROL LEVEL 201 MG/DL (<200); CHOLESTEROL RISK RATIO 5.025 (<5); CREATININE FOR GFR 1.08 MG/DL (0.70-1.30); FREE T4 1.39 NG/DL (0.76-1.46); GLOMERULAR FILTRATION RATE > 60.0 (>60); GLUCOSE, FASTING 89 MG/DL (70-100); HDL CHOLESTEROL 40 MG/DL (>40); LDL CHOLESTEROL 142 MG/DL (<100); NON-HDL-C 161 MG/DL; POTASSIUM SERUM 4.7 MEQ/L (3.5-5.1); SODIUM LEVEL 142 MEQ/L (136-145); TOTAL PROTEIN 7.5 GM/DL (6.4-8.2); TRIGLYCERIDES LEVEL 97 MG/DL (<150)
[2019-11-10 18:16] LABS: TOTAL 25(OH) VITAMIN D 29.7 NG/ML (30.0-100.0)
== END ==
LOC: M LAB 15:08
PROVIDERS: ATTEND Family Medicine
DX: E03.9 Hypothyroidism, unspecified (principal)

== ENCOUNTER → 2020-11-14 | Outpatient (CLI) | payer OTHER ==
[2020-11-14 08:04] LABS: BASO % 0.6 % (0.0-1.0); EOS # 0.1 10^3/uL (0.0-0.5); EOS % 2.6 % (0.0-3.0); HEMATOCRIT 45.8 % (42.0-52.0); HEMOGLOBIN 15.4 g/dl (13.5-17.5); LYMPH # 2.1 10^3/uL (1.5-5.0); LYMPH % 42.3 % (24.0-44.0); MEAN CORPUSCULAR HEMOGLOBIN 28.7 pg (27.0-33.0); MEAN CORPUSCULAR HGB CONC 33.6 g/dl (32.0-36.5); MEAN CORPUSCULAR VOLUME 85.4 fl (80.0-96.0); MONO # 0.4 10^3/uL (0.0-0.8); MONO % 8.4 % (2.0-8.0); NEUTROPHILS # 2.3 10^3/uL (1.5-8.5); NEUTROPHILS % 45.9 % (36.0-66.0); PLATELET COUNT, AUTOMATED 153 10^3/uL (150-450); RED BLOOD COUNT 5.36 10^6/uL (4.30-6.10)
[2020-11-14 08:28] LABS: ALT/SGPT 48 U/L (12-78); BILIRUBIN,TOTAL 0.5 MG/DL (0.2-1.0); BLOOD UREA NITROGEN 14 MG/DL (7-18); CALCIUM LEVEL 9.3 MG/DL (8.5-10.1); CARBON DIOXIDE LEVEL 29 MEQ/L (21-32); CHLORIDE LEVEL 109 MEQ/L (98-107); CHOLESTEROL LEVEL 180 MG/DL (<200); CHOLESTEROL RISK RATIO 3.673 (<5); CREATININE FOR GFR 0.89 MG/DL (0.70-1.30); FREE T4 1.27 NG/DL (0.76-1.46); GLOMERULAR FILTRATION RATE > 60.0 (>60); GLUCOSE, FASTING 99 MG/DL (70-100); HDL CHOLESTEROL 49 MG/DL (>40); LDL CHOLESTEROL 116 MG/DL (<100); NON-HDL-C 131 MG/DL; POTASSIUM SERUM 4.4 MEQ/L (3.5-5.1); SODIUM LEVEL 142 MEQ/L (136-145); THYROID STIMULATING HORMONE 0.691 uIU/ML (0.358-3.740); TOTAL PROTEIN 7.4 GM/DL (6.4-8.2); TRIGLYCERIDES LEVEL 77 MG/DL (<150)
[2020-11-14 09:53] LABS: TOTAL 25(OH) VITAMIN D 25.9 NG/ML (30.0-100.0)
== END ==
LOC: M LAB 07:13
PROVIDERS: ATTEND Family Medicine
DX: E55.9 Vitamin D deficiency, unspecified (principal)

== ENCOUNTER → 2021-01-13 | Outpatient (CLI) | payer OTHER ==
--- NOTE | 2021-01-14 08:22 | REP ---
INDICATION: LOW BACK PAIN COMPARISON: None. TECHNIQUE: AP, lateral, flexion/extension, bilateral oblique, and coned-down views. FINDINGS: Alignment and lordosis is maintained. The vertebral bodies including transverse process and spinous processes are intact and normal. There is no evidence for acute fracture / compression injury or subluxation. No evidence for spondylolysis or spondylolisthesis. Mild multilevel degenerative changes with endplate sclerosis, subtle marginal spurring and mild facet hypertrophy primarily involving L4-5 through L5-S1. Very minimal disc space narrowing at L5-S1 is also suggested. IMPRESSION: Mild degenerative changes to the lower lumbar spine suggested. <Electronically signed by Luciano Baldwin > 01/14/21 [id number]
== END ==
LOC: M RAD 18:52
PROVIDERS: ATTEND Family Medicine
DX: M51.36 Other intervertebral disc degeneration, lumbar region (principal)

== ENCOUNTER 2021-10-28 08:11 | Emergency (ER) | payer OTHER ==
[2021-10-28 08:19] VITALS: BP 136/88
[2021-10-28 09:11] VITALS: O2SAT 99
== END 2021-10-28 10:26 | disposition home or self-care (01) ==
LOC: EDBD 08:11 → M ED 08:11
DX: S06.0X0A Concussion without loss of consciousness, initial encounter (principal); V48.5XXA Car driver injured in noncollision transport accident in traffic accident, initial encounter

== ENCOUNTER → 2021-11-27 | Outpatient (CLI) | payer BC, OTHER ==
[2021-11-27 09:06] LABS: BASO % 0.6 % (0.0-1.0); EOS # 0.1 10^3/uL (0.0-0.5); EOS % 1.4 % (0.0-3.0); HEMATOCRIT 44.7 % (42.0-52.0); HEMOGLOBIN 15.5 g/dl (13.5-17.5); LYMPH # 1.8 10^3/uL (1.5-5.0); LYMPH % 34.6 % (24.0-44.0); MEAN CORPUSCULAR HEMOGLOBIN 29.4 pg (27.0-33.0); MEAN CORPUSCULAR HGB CONC 34.7 g/dl (32.0-36.5); MEAN CORPUSCULAR VOLUME 84.7 fl (80.0-96.0); MONO # 0.5 10^3/uL (0.0-0.8); MONO % 10.1 % (2.0-8.0); NEUTROPHILS # 2.7 10^3/uL (1.5-8.5); NEUTROPHILS % 53.1 % (36.0-66.0); PLATELET COUNT, AUTOMATED 177 10^3/uL (150-450); RED BLOOD COUNT 5.28 10^6/uL (4.30-6.10); WHITE BLOOD COUNT 5.2 10^3/uL (4.0-10.0)
[2021-11-27 09:39] LABS: ALBUMIN 3.9 GM/DL (3.2-5.2); ALT/SGPT 54 U/L (12-78); BILIRUBIN,TOTAL 0.8 MG/DL (0.2-1.0); BLOOD UREA NITROGEN 12 MG/DL (7-18); CALCIUM LEVEL 9.1 MG/DL (8.5-10.1); CARBON DIOXIDE LEVEL 27 MEQ/L (21-32); CHLORIDE LEVEL 108 MEQ/L (98-107); CHOLESTEROL LEVEL 184 MG/DL (<200); CHOLESTEROL RISK RATIO 4.279 (<5); CREATININE FOR GFR 1.05 MG/DL (0.70-1.30); FREE T4 1.27 NG/DL (0.76-1.46); GLOMERULAR FILTRATION RATE > 60.0 (>60); GLUCOSE, FASTING 84 MG/DL (70-100); HDL CHOLESTEROL 43 MG/DL (>40); LDL CHOLESTEROL 123 MG/DL (<100); NON-HDL-C 141 MG/DL; POTASSIUM SERUM 4.2 MEQ/L (3.5-5.1); SODIUM LEVEL 140 MEQ/L (136-145); TRIGLYCERIDES LEVEL 92 MG/DL (<150)
[2021-11-27 09:55] LABS: TOTAL 25(OH) VITAMIN D 33.4 NG/ML (30.0-100.0)
== END ==
LOC: M LAB 07:51
PROVIDERS: ATTEND Nurse Practitioner Adult Health
DX: Z13.220 Encounter for screening for lipoid disorders (principal); Z13.228 Encounter for screening for other metabolic disorders; E03.9 Hypothyroidism, unspecified

== ENCOUNTER → 2022-06-09 | Outpatient (CLI) | payer BC, OTHER ==
[2022-06-09 15:06] LABS: BASO % 0.4 % (0.0-1.0); EOS # 0.1 10^3/uL (0.0-0.5); EOS % 1.2 % (0.0-3.0); HEMATOCRIT 41.2 % (42.0-52.0); HEMOGLOBIN 14.1 g/dl (13.5-17.5); LYMPH # 2.1 10^3/uL (1.5-5.0); LYMPH % 42.2 % (24.0-44.0); MEAN CORPUSCULAR HGB CONC 34.2 g/dl (32.0-36.5); MEAN CORPUSCULAR VOLUME 84.6 fl (80.0-96.0); MONO # 0.5 10^3/uL (0.0-0.8); MONO % 10.2 % (2.0-8.0); NEUTROPHILS # 2.3 10^3/uL (1.5-8.5); PLATELET COUNT, AUTOMATED 282 10^3/uL (150-450); RED BLOOD COUNT 4.87 10^6/uL (4.30-6.10)
[2022-06-09 15:23] LABS: INR 0.92; PROTHROMBIN TIME 12.6 SECONDS (12.5-14.5)
[2022-06-09 15:24] LABS: PARTIAL THROMBOPLASTIN TIME 28.3 SECONDS (24.8-34.2)
[2022-06-09 15:36] LABS: ALBUMIN 3.9 G/DL (3.2-5.2); ALKALINE PHOSPHATASE 71 U/L (46-116); ALT/SGPT 50 U/L (7.0-40); AST/SGOT 33 U/L (<34); BILIRUBIN,DIRECT 0.2 MG/DL (<0.4); BILIRUBIN,TOTAL 0.6 MG/DL (0.3-1.2); TOTAL PROTEIN 6.6 G/DL (5.7-8.2)
[2022-06-09 15:51] LABS: HEPATITIS B SURFACE ANTIGEN NEGATIVE (NEGATIVE)
[2022-06-09 16:12] LABS: HEPATITIS B CORE ANTIBODY IGM NEGATIVE (NEGATIVE)
== END ==
LOC: M LAB 14:32
PROVIDERS: ATTEND Nurse Practitioner Adult Health
DX: R31.9 Hematuria, unspecified (principal)

== ENCOUNTER → 2022-06-09 | Outpatient (CLI) | payer BC, OTHER ==
[~2022-06-09] MED LIST: ISOVUE-370 76% 100ML VIAL As Ordered ONE
== END ==
LOC: M RAD 15:16
PROVIDERS: ATTEND Nurse Practitioner Adult Health
DX: R31.0 Gross hematuria (principal)

== ENCOUNTER → 2022-06-30 | Outpatient (REF) | payer BC, OTHER ==
[2022-06-30 19:21] LABS: APPEARANCE, URINE MANUAL CLEAR (CLEAR); COLOR, URINE MANUAL LT YELLOW (YELLOW)
[2022-06-30 19:22] LABS: BILIRUBIN, URINE MANUAL NEGATIVE (NEGATIVE); BLOOD URINE MANUAL NEGATIVE (NEGATIVE); GLUCOSE, URINE (UA) MANUAL NEGATIVE (NEGATIVE); KETONE, URINE MANUAL NEGATIVE (NEGATIVE); LEUKOCYTE ESTERASE, URINE MAN NEGATIVE (NEGATIVE); NITRITE, URINE MANUAL NEGATIVE (NEGATIVE); PH,URINE MAN 7.5 UNITS (5.0 - 7.0); PROTEIN, URINE MANUAL NEGATIVE (NEGATIVE); UROBILINOGEN, URINE MANUAL NORMAL (NORMAL)
== END ==
LOC: M SMT 17:07
PROVIDERS: ATTEND Urology
DX: R31.0 Gross hematuria (principal)

== ENCOUNTER 2022-07-26 18:24 | Emergency (ER) | payer BC, OTHER ==
[~2022-07-26] VITALS: Ht 170.2 cm; Wt 93.2 kg
[2022-07-26 18:24] VITALS: BP 152/89
[2022-07-26] MEDS ORDERED: LEVO50TA5 (18:40)
[2022-07-26] MEDS ORDERED: OMEP40CA5 (18:40)
[2022-07-26] MEDS ORDERED: BUPR-365 (18:40)
[2022-07-26 19:24] LABS: BASO % 0.2 % (0.0-1.0); EOS % 0.2 % (0.0-3.0); LYMPH % 8.3 % (24.0-44.0); MEAN CORPUSCULAR HEMOGLOBIN 29.2 pg (27.0-33.0); MEAN CORPUSCULAR HGB CONC 34.1 g/dl (32.0-36.5); MEAN CORPUSCULAR VOLUME 85.6 fl (80.0-96.0); MONO # 0.5 10^3/uL (0.0-0.8); MONO % 3.9 % (2.0-8.0); NEUTROPHILS # 10.6 10^3/uL (1.5-8.5); NEUTROPHILS % 87.1 % (36.0-66.0); PLATELET COUNT, AUTOMATED 226 10^3/uL (150-450); RED BLOOD COUNT 4.79 10^6/uL (4.30-6.10); WHITE BLOOD COUNT 12.2 10^3/uL (4.0-10.0)
[2022-07-26] MEDS ORDERED: KETOROLAC 30 MG/ML 1ML VIAL IV ONE (19:25)
[2022-07-26] MEDS ORDERED: NS 1,000 ML IV ONE (19:25)
[2022-07-26] MEDS ORDERED: ONDANSETRON 4MG 2ML VIAL IV ONE (19:25)
[2022-07-26 20:00] LABS: ALBUMIN 3.9 G/DL (3.2-5.2); ALKALINE PHOSPHATASE 64 U/L (46-116); ALT/SGPT 48 U/L (7.0-40); AST/SGOT 26 U/L (<34); BILIRUBIN,DIRECT 0.1 MG/DL (<0.4); BILIRUBIN,TOTAL 0.5 MG/DL (0.3-1.2); BLOOD UREA NITROGEN 17 MG/DL (9-23); CALCIUM LEVEL 8.7 MG/DL (8.5-10.1); CARBON DIOXIDE LEVEL 27 MMOL/L (20-31); CHLORIDE LEVEL 107 MMOL/L (98-107); CREATININE FOR GFR 0.98 MG/DL (0.70-1.30); GLOMERULAR FILTRATION RATE > 60.0 (>60); GLUCOSE, FASTING 103 MG/DL (60-100); POTASSIUM SERUM 4.2 MMOL/L (3.5-5.1); SODIUM LEVEL 140 MMOL/L (136-145); TOTAL PROTEIN 6.8 G/DL (5.7-8.2)
[2022-07-26] MEDS ORDERED: KETO10TAB PO (21:15)
[2022-07-26] MEDS ORDERED: FLOM0.4C39 PO (21:15)
[2022-07-26] MEDS ORDERED: ONDA4TAB6 PO (21:15)
== END 2022-07-26 21:27 | disposition home or self-care (01) ==
LOC: M ED 18:24
DX: N13.2 Hydronephrosis with renal and ureteral calculous obstruction (principal); Z79.890 Hormone replacement therapy; Z79.899 Other long term (current) drug therapy
CPT/HCPCS: 74176; 80048; 80076; 81001; 85025; 96361; 96374; 96375; 99283; J1885; J2405

== ENCOUNTER → 2022-08-18 | Outpatient (REF) | payer BC, OTHER ==
[~2022-08-18] MED LIST changes: +BUPR-365; +FLOM0.4C39 PO; -ISOVUE-370 76% 100ML VIAL As Ordered ONE; +KETO10TAB PO; +LEVO50TA5; +OMEP40CA5; +ONDA4TAB6 PO
[2022-08-18 12:08] LABS: APPEARANCE, URINE HAZY (CLEAR); BACTERIA, URINE AUTO NEGATIVE (NEGATIVE); BILIRUBIN, URINE AUTO NEGATIVE (NEGATIVE); BLOOD, URINE BLOOD NEGATIVE (NEGATIVE); COLOR, URINE YELLOW (YELLOW); GLUCOSE, URINE (UA) AUTO NEGATIVE (NEGATIVE); KETONE, URINE AUTO NEGATIVE (NEGATIVE); LEUKOCYTE ESTERASE, URINE AUTO NEGATIVE (NEGATIVE); MUCUS, URINE SMALL (NEGATIVE); NITRITE, URINE AUTO NEGATIVE (NEGATIVE); PROTEIN, URINE AUTO NEGATIVE (NEGATIVE); RBC, URINE AUTO 1 /HPF (0-3); SPECIFIC GRAVITY URINE AUTO 1.017 (1.002-1.035); SQUAMOUS EPITHELIAL CELL UR AU 0 /HPF (0-6); UROBILINOGEN, URINE AUTO 0.2 mg/dL (0.0-2.0); WBC, URINE AUTO 1 /HPF (0-3)
== END ==
LOC: M SMT 11:34
PROVIDERS: ATTEND Urology
DX: N20.1 Calculus of ureter (principal)